=== PATIENT | male | born 1960 | race Caucasian/White ===

== ENCOUNTER 2020-02-06 00:27 | Emergency (ER) | payer BC ==
--- NOTE | 2020-02-06 00:49 | ERPHSYRPT ---
- History of Present Illness Time Seen by Provider: 02/06/20 00:35 Source: patient, EMS Exam Limitations: clinical condition Physician History: This is a 59-year-old white male who takes 1 baby aspirin a day and was consuming alcohol and slipped and fell at home suffering a scalp laceration. There was significant bleeding. He called the ambulance service who brought him into the hospital. Patient admits to consuming alcohol. He is mildly intoxicated with alcohol. He is conversing. He is breathing well. He states he did not lose consciousness. He refused being placed in a c-collar during his ambulance trip to the emergency room. Patient denies chest pain he denies shortness of breath. Patient states that he slipped and fell and hit his head on the desk. Patient is oriented. Occurred: just prior to arrival Reason for Fall: slipped (Intoxicated with alcohol) Injuries/Pain Location: head Loss of Consciousness: no loss of consciousness Severity of Pain-Max: mild Severity of Pain-Current: mild Associated Symptoms (Fall): denies symptoms, No dizziness, No headache, No neck pain Allergies/Adverse Reactions: Penicillins Allergy (Unknown, Verified 02/06/20 00:46) Home Medications: Aspirin EC 81 mg [Ecotrin 81 mg] 81 mg PO DAILY 01/03/13 [History] Multivitamin [Multi-Vitamin Daily] 1 each PO DAILY 01/03/13 [History] Acetaminophen/Diphenhydramine [Tylenol Pm Ex-Strength Caplet] 2 tab PO HS PRN 01/06/13 [History] Fish Oil/Dha/Epa [Fish Oil 1,200 mg Fish Oil] 1 each PO DAILY 01/06/13 [History] Hx Influenza Vaccination/Date Given: Yes (2012) Hx Pneumococcal Vaccination/Date Given: No Travel Risk - International Travel Have you traveled outside of the country in past 3 weeks: No - Coronavirus Screening Are you exhibiting any of the following symptoms?: No Close contact with a COVID-19 positive Pt in past 14-21 Days: No - Review of Systems Constitutional: No Symptoms Eyes: No Symptoms Ears, Nose, & Throat: No Symptoms Respiratory: No Symptoms Cardiac: No Symptoms Abdominal/Gastrointestinal: No Symptoms Genitourinary Symptoms: No Symptoms Musculoskeletal: No Symptoms Skin: Other (Scalp laceration) Neurological: No Symptoms Psychological: No Symptoms Endocrine: No Symptoms Hematologic/Lymphatic: No Symptoms Immunological/Allergic: No Symptoms All Other Systems: Reviewed and Negative - Past Medical History Pertinent Past Medical History: Yes Neurological History: Migraines, Other ENT History: No Pertinent History Cardiac History: No Pertinent History Respiratory History: Asthma Endocrine Medical History: No Pertinent History Musculoskeletal History: No Pertinent History GI Medical History: No Pertinent History History: No Pertinent History Psycho-Social History: Depression Male Reproductive Disorders: No Pertinent History Other Medical History: trigeminal neuralgia. sinus infections - Past Surgical History Past Surgical History: Yes Neuro Surgical History: Other Cardiac: No Pertinent History Respiratory: No Pertinent History Gastrointestinal: No Pertinent History Genitourinary: No Pertinent History Musculoskeletal: No Pertinent History Male Surgical History: No Pertinent History Other Surgical History: pilonidal cystectomy. jenifer patch in head - Social History Smoking Status: Never smoker Exposure to second hand smoke: No Drug Use: none - Nursing Vital Signs Nursing Vital Signs: Initial Vital Signs Temperature 98.3 F 02/06/20 00:46 Pulse Rate 79 02/06/20 00:46 Respiratory Rate 16 02/06/20 00:46 Blood Pressure 144/90 02/06/20 00:46 O2 Sat by Pulse Oximetry 98 02/06/20 00:46 Pain Scale Pain Intensity 4 - Joselyn Coma Score Best Eye Response (Rumely): (4) open spontaneously Best Verbal Response (Rumely): (5) oriented Best Motor Response (Joselyn): (6) obeys commands Rumely Total: 15 - Physical Exam General Appearance: no apparent distress, alert, anxiety Head Injury: active bleeding, lacerations (From edges of the laceration measuring approximately 10 cm.) Eye Exam: PERRL/EOMI, eyes nml inspection ENT Exam: airway nml, No evidence of ENT injury, No nml ext.inspection Neck Exam: supple, trachea midline, full range of motion, normal alignment, normal inspection Respiratory/Chest Exam: normal breath sounds, No chest tenderness, No respiratory distress, No ecchymosis, No crepitus Cardiovascular Exam: normal heart sounds, regular rate/rhythm, murmur, normal peripheral pulses Gastrointestinal Exam: soft, normal bowel sounds, No tenderness Rectal Exam: not done Back Exam: normal inspection, normal range of motion, No CVA tenderness, No vertebral tenderness Extremity Exam: normal inspection, normal range of motion, capillary refill <3 sec, pelvis stable Neurologic Exam: alert, oriented x 3, cooperative, 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, normal mood/affect, nml cerebellar function, nml station & gait, sensation nml, intoxicated appearance (Mildly) Skin Exam: laceration (See above) SpO2 Interpretation: normal O2 Delivery: Room Air Procedures - Laceration/Wound Repair Parietal Wound Location: head Wound Length (cm): 10 Wound's Depth, Shape: linear, into subcut Wound Explored: clean (Brisk oozing from the laceration skin edges) Irrigated: Yes Hibiclens Prep: Yes Wound Repaired With: [place] Layer Closure?: No Progress: 02/06/20 00:53 Procedure note: The extent of the laceration site was determined after using yoon ctric razor to the scalp. The laceration measured approximately 10 cm in total length. It was somewhat curvilinear. There is skin edge bleeding that was brisk. The wound was irrigated out with normal saline/Hibiclens solution. 19 corwin were used to approximate the skin edge. The bleeding was controlled. The area was then cleaned again with Hibiclens solution and a pressure dressing was applied. There were no complications the patient told procedure well. - Course Nursing assessment & vital signs reviewed: Yes Ordered Tests: Active Orders 24 hr Category Date Time Status CERVICAL SPINE WO CONTRAST [CT] Stat Exams 02/06/20 00:54 Taken HEAD WITHOUT CONTRAST [CT] Stat Exams 02/06/20 00:54 Taken CBC W DIFF Stat Lab 02/06/20 01:30 Completed Medication Summary Discontinued Medications Generic Name Dose Route Start Last Admin Trade Name Jair PRN Reason Stop Dose Admin Acetaminophen 650 mg 02/06/20 00:57 02/06/20 01:03 Tylenol 325 Mg PO 02/06/20 00:58 650 mg STAT STA Administration Acetaminophen Confirm 02/06/20 01:02 Tylenol 325 Mg Administered 02/06/20 01:03 Dose 650 mg .ROUTE .Videology-Superprotonic ONE Lab/Rad Data: Laboratory Result Diagrams 02/06/20 01:30 Laboratory Results 02/06/20 Range/Units 01:30 WBC 7.0 (4.0-10.5) K/mm3 RBC 4.37 (4.1-5.6) M/mm3 Hgb 14.5 (12.5-18.0) gm/dl Hct 42.7 (42-50) % MCV 97.7 (78-100) fl MCH 33.2 H (26-32) pg MCHC 34.0 (32-36) g/dl RDW 13.0 (11.5-14.0) % Plt Count 190 (150-450) K/mm3 MPV 10.5 (7.5-11.0) fl Gran % 49.3 (36.0-66.0) % Eos # (Auto) 0.14 (0-0.5) Absolute Lymphs (auto) 2.90 (1.0-4.6) Absolute Monos (auto) 0.49 (0.0-1.3) Lymphocytes % 41.3 (24.0-44.0) % Monocytes % 7.0 (0.0-12.0) % Eosinophils % 2.0 (0.00-5.0) % Basophils % 0.4 (0.0-0.4) % Absolute Granulocytes 3.47 (1.4-6.9) Basophils # 0.03 (0-0.4) - Progress Progress: improved, re-examined Progress Note: 02/06/20 01:57 CAT scan of the head shows no acute intracranial abnormality. There is raw large right sided soft tissue contusion/hematoma present CAT scan of the cervical spine shows no acute cervical spine fracture Counseled pt/family regarding: lab results, diagnosis, need for follow-up, rad results - Departure Departure Disposition: Home Clinical Impression: Fall with injury, Scalp laceration Condition: Stable Critical Care Time: No Referrals: CECE MOCTEZUMA MD [Primary Care Provider] - Additional Instructions: Keep dressing in place for 36 hours. Ice pack to site 3 times a day for 10 minutes each session for 36 hours. After 36 hours, may wash the area with soap and water. Blot dry or use inspector hairspring to dry your hair. Use Tylenol and ibuprofen for pain control. Staple removal in 8 to 10 days. Prescriptions: Hydrocodone/APAP 5-325 Tab^^^ [[place] 5-325 Tablet^^^] 1 tab PO Q8HPRN PRN #6 tablet MDD 3 PRN Reason: Pain
[2020-02-06] MEDS ORDERED: TYLENOL 325 MG PO STA (00:57)
[2020-02-06] MEDS ORDERED: TYLENOL 325 MG ONE (01:02)
[2020-02-06 01:06] VITALS: O2SAT 98
[2020-02-06 01:52] LABS: Absolute Neutrophil Ct (ANC) 3.47 (1.4-6.9); BASOPHIL % 0.4 % (0.0-0.4); Basophil (Absolute #) 0.03 (0-0.4); Eosinophil (Absolute #) 0.14 (0-0.5); Hematocrit 42.7 % (42-50); Hemoglobin 14.5 gm/dl (12.5-18.0); Lymphocytes % 41.3 % (24.0-44.0); Mean Cell Volume 97.7 fl (78-100); Mean Corpuscular Hemoglobin 33.2 pg (26-32); Mean Platelet Volume 10.5 fl (7.5-11.0); Monocyte (Absolute #) 0.49 (0.0-1.3); Neutrophil % 49.3 % (36.0-66.0); Platelet Count 190 K/mm3 (150-450); Red Blood Count 4.37 M/mm3 (4.1-5.6)
[2020-02-06 01:55] VITALS: BP 130/75; PULSE 75
--- NOTE | 2020-02-06 08:51 | XRAY ---
Indication: Head injury following fall. Multiple contiguous axial images obtained through the head without contrast. Comparison: None Normal appearing brain parenchyma, ventricles, and bony calvarium. Small right parietal scalp hematoma with cutaneous corwin near the vertex. Incidental left occipital craniotomy. Visualized paranasal sinuses and mastoid air cells are clear. Impression: Right scalp hematoma. No underlying fracture or acute intracranial abnormalities.. Comment: Preliminary interpretation was made by [facility]. No critical discrepancy.
--- NOTE | 2020-02-06 08:56 | XRAY ---
Indication: Head injury following fall. Multiple contiguous axial images obtained through the cervical spine. Sagittal and coronal reformatted images obtained. Comparison: None Axial images negative for acute fracture, suspicious bony lesions, or spinal canal stenosis. Mild multilevel bilateral degenerative facet arthropathy, left greater than right. Sagittal and coronal reformatted images demonstrates normal alignment with vertebral body heights/disc spaces maintained. No acute fracture, subluxation, or jumped facet. Normal appearing craniocervical junction. Visualized noncontrasted soft tissues demonstrates minimal bilateral carotid calcifications, scattered small cervical lymph nodes bilaterally, and 2 x 1.8 cm hyperdense mass posterior to the left thyroid. Lung apices are clear. CT head reported separately. Impression: 1. Negative acute fracture/subluxation. 2. Multilevel degenerative facet hypertrophy. 3. Incidental hyperdense mass posterior to left thyroid gland. Thyroid sonogram may yield further information. Comment: Preliminary interpretation was made by [facility]. No critical discrepancy.
== END 2020-02-06 02:26 | disposition home or self-care (01) ==
LOC: ED 00:27
DX: S01.01XA Laceration without foreign body of scalp, initial encounter (principal); W01.190A Fall on same level from slipping, tripping and stumbling with subsequent striking against furniture, initial encounter; Y92.89 Other specified places as the place of occurrence of the external cause; Y99.8 Other external cause status; Z72.89 Other problems related to lifestyle; Z79.899 Other long term (current) drug therapy
CPT/HCPCS: 12004; 36415; 70450; 72125; 85025; 99284; A9270-GY